=== PATIENT | female | born 2000 | race Caucasian/White ===

== ENCOUNTER 2025-06-10 16:12 | Emergency (ER) | payer BC, SELFPAY ==
[2025-06-10 16:17] VITALS: BP 146/106
[2025-06-10 19:52] LABS: Hematocrit 40.4 % (37.0-47.0); Hemoglobin 14.0 g/dL (12.0-16.0); Mean Corp Hgb Conc. 34.7 g/dL (33.0-37.0); Mean Corpuscular Volume 81.1 fL (81.0-99.0); Nucleated Red Blood Cells % 0 %; Platelet Count 295 10^3/uL (130-400); Red Cell Dist. Width 12.6 % (11.5-14.5)
[2025-06-10] MEDS: NSS 1000 IV (19:55)
[2025-06-10] MEDS: TORADOL 15 MG IV (19:56)
[2025-06-10 20:02] VITALS: BP 140/86
[2025-06-10 20:24] LABS: HCG, Serum Qualitative Screen Negative
[2025-06-10 20:33] LABS: ALT (SGPT) 22 U/L (0-35); AST (SGOT) 20 U/L (14-36); Albumin 4.8 g/dl (3.5-5.0); Alkaline Phosphatase 45 U/L (38-126); Blood Urea Nitrogen 10 mg/dl (7-17); Calcium 9.5 mg/dl (8.4-10.2); Carbon Dioxide 26 mmol/L (22-30); Chloride 102 mmol/L (98-107); Glucose 90 mg/dl (70-99); Potassium 4.0 mmol/L (3.5-5.1); Sodium 134 mmol/L (135-145); Total Protein 7.1 g/dl (6.3-8.2); eGFR > 60.00
--- NOTE | 2025-06-10 21:17 | ED.GENMED ---
History of Present Illness
General
Chief Complaint: Facial Problem
Source: patient
Exam Limitations: none
Time Seen by Provider: 06/10/25 19:44
Nursing documentation reviewed up to this point in time: agreed with
History of Present Illness
History of Present Illness:
Patient is a healthy 24-year-old female who presents to the emergency department for right sided facial swelling. Patient states she developed a suspected pimple in her right nostril on Monday. Yesterday, she states that there was a small amount
of green-colored discharge from the pimple. Upon waking this morning, she noticed significant swelling of the right side of her face. She has tenderness most significant around right nares. Patient was seen by her assistant passenger locomotive engineer today who started
patient on a course of Bactrim however did recommend visit to the emergency department for CT scan and further evaluation.
Patient denies any fever or chills. She denies any difficulty opening her mouth. No difficulty swallowing or breathing. She denies any changes in her vision. No neck pain or headache.
Review of Systems
Review of Systems
Allergies reviewed?: Yes
All Other Systems: ROS reviewed and negative except as documented in HPI and ROS
Phy Exam
Physical Exam
Physical Exam:
Vitals: Patient's vital signs are stable. Afebrile
General: Patient is well appearing, nontoxic appearing
Skin: Mild right-sided facial swelling extending from right nares to right zygoma. No overlying erythema, warmth, or fluctuance. Small pustule right nares.
Head: Normocephalic, atraumatic
Throat: Protecting airway. No trismus
Neck: Normal ROM, no cervical spine tenderness, no palpable cervical lymphadenopathy. No tenderness or erythema of the neck. No meningismus.
Cardiac: Regular rate
Pulm: No apparent respiratory distress
Abdomen: Nondistended
Neuro: Grossly intact
Psychiatric: Normal affect.
Course
Orders/Labs/Results
Orders:
Orders
06/10/25 19:43
Complete Blood Count/With Diff Urgent
Comprehensive Metabolic Panel Urgent
HCG, Serum Qualitative Screen Urgent
Comment: ADDON
06/10/25 19:50
Add On- LAB Urgent
Tests Added?: serum hcg
Facial Bones w Contrast CT [CT Facial Bones W/ Iv Contrast] Urgent
Comment:
Reason For Exam: erythema / swelling right cheek
0.9% Sodium Chloride 1000 ml [Nss] 1,000 ml IV BOLUS
Ketorolac [Toradol] 15 mg IV NOW STA
06/10/25 22:58
Sulfamethox./Trimethoprim Ds [Bactrim Ds 800 mg/160 mg] 1 tablet PO NOW STA
Abnormal Lab Results
06/10/25
19:43
WBC 12.5 H 10^3/uL
(4.8-10.8)
Absolute Neuts (auto) 8.9 H 10^3/uL
(1.4-6.5)
Absolute Monos (auto) 0.7 H 10^3/uL
(0.1-0.6)
Sodium 134 L mmol/L
(135-145)
06/10/25 19:43
06/10/25 19:43
Vital Signs
Initial and Last Documented VS:
Initial Vital Signs
Temp Pulse Resp BP Pulse Ox
98.6 F 96 16 146/106 100
06/10/25 16:17 06/10/25 16:17 06/10/25 16:17 06/10/25 16:17 06/10/25 16:17
Last Documented Vital Signs
Temp Pulse Resp BP Pulse Ox
98.9 F 85 16 138/89 98
06/10/25 22:57 06/10/25 22:57 06/10/25 22:57 06/10/25 22:57 06/10/25 22:57
MDM/Problems Addressed
Differential Diagnosis Includes:
Not limited to: Facial cellulitis, folliculitis, erysipelas, facial abscess, etc.
MDM/Problems Addressed:
24-year-old female with suspected right sided facial cellulitis. Symptoms gradually progressing over the past few days-started on Bactrim by dermatology today however has not started medication. Patient afebrile with stable vital signs.
Physical exam as above. There is mild right facial swelling without any overlying erythema, warmth or defined areas of fluctuance. Pustule noted in right nare. She is protecting her airway. No trismus.
Labs sent in triage reveal mild leukocytosis. Otherwise no clinically significant abnormalities. A CT face w/ contrast shows mild inflammation around nares bilaterally.
Impression is likely mild facial cellulitis. No evidence of abscess. She has remained afebrile and hemodynamically stable.
Feel patient is appropriate for trial of outpatient oral antibiotics. Will have patient continue with Bactrim as prescribed by dermatology to cover for possible MRSA.
She has follow up appointment scheduled on with dermatology for reevaluation. I did discuss very close return precautions. Patient comfortable with plan. First dose of Bactrim given in ED prior to discharge.
Chronic conditions affecting care:
N/A
Acute Exacerbation and/or Progression of Chronic Illness:
N/A
*Radiology
Radiology exam reviewed: radiology read reviewed
*Pulse Oximetry
SaO2: 99
Oxygen Mode of Delivery: Room air
Patient hypoxic: no
*EKG
Interpreted by ED Provider?: NA
*Safety Supervisor Interpretation
Rate: Safety Supervisor- N/A
*Critical Care Note
Total Time (30-74mins, 75-104mins- exclusive of procedures): Not Applicable
ED Attending Note
-
Portions of this chart may have been created with voice recognition software.� Occasional wrong word or��sound alike� substitutions may have occurred due to the inherent limitations of voice recognition software.
Discharge Plan
Departure
Patient Disposition: Home (Routine Discharge)
Date of Disposition: 06/10/25
Time of Disposition: 23:11
Patient with high blood pressure during this ER visit?: Yes
Discharge Problem:
Cellulitis of face
Instructions: Cellulitis (Skin Infection), Adult (DC), BLOOD PRESSURE
Referrals:
Lily Douglas DO [Active, Dermatology] - Keep scheduled appt
IZA AGUIRRE, [Family Provider]
Activity Restrictions/Additional Instructions:
RETURN TO THE EMERGENCY DEPARTMENT WITH ANY FEVER, CHILLS, WORSENING PAIN/SWELLING/REDNESS OF FACE, DIFFICULTY SWALLOWING OR BREATHING, WORSENING IN CURRENT SYMPTOMS, OR ANY OTHER CONCERNS
- As discussed�your white blood cell count was mildly elevated today in the emergency department. Your CT scan showed some inflammation however no evidence of abscess.
- Please take Bactrim as directed by dermatology twice a day X 10 days. You can take Tylenol and/or Motrin as needed for discomfort. It is important to stay well-hydrated.
- Follow-up with dermatology as scheduled on .
Monitor your symptoms closely and return to the emergency department with any acute worsening/new symptoms or any signs of worsening infection
Interventions
Interventions:
*Risk Screen - Suicide Last Done: 06/10/25 16:19
*General Assessment Last Done: 06/10/25 18:50
*Neglect/Abuse Screening Last Done: 06/10/25 16:19
*ED- Fall Risk Assessment Last Done: 06/10/25 18:50
*ED COVID-19 Vaccine History Last Done: 06/10/25 18:50
*ED Influenza Vaccine History Last Done: 06/10/25 18:50
*Nursing Disposition Last Done: 06/10/25 23:22
ED-Skin Assessment Last Done: 06/10/25 18:50
Discharge Date and Time
Discharge Date/Time: 06/10/25 23:24
Print Language: GHANAIAN
[2025-06-10 22:57] VITALS: BP 138/89
[2025-06-10] MEDS: BACTRIM DS 800 MG/160 MG 1 TABLET PO (23:01)
== END 2025-06-10 23:24 | disposition home or self-care (01) ==
LOC: EMR 16:12
PROVIDERS: EMERGENCY PHYSICIAN Emergency Medicine; FAMILY PHYSICIAN Family Medicine
DX: L03.211 Cellulitis of face (principal)
CPT/HCPCS: 99284; 96374; 96361; 70487; 80053; 84703; 85025; Q9967